=== PATIENT | male | born 1955 ===

== ENCOUNTER 2016-11-24 08:18 | Inpatient (IN) | payer MEDICAID ==
[2016-11-24 08:23] VITALS: BMI 30.4
--- NOTE | 2016-11-24 10:23 | ED PDOC ---
Lower Extremity Pain/Injury Time Seen by Provider: 11/24/16 08:35 Chief Complaint (Nursing): Lower Extremity Problem/Injury Chief Complaint (Provider): Lower Extremity Problem/Injury History Per: Patient History/Exam Limitations: no limitations Onset/Duration Of Symptoms: Days Current Symptoms Are (Timing): Still Present Severity: Moderate Additional Complaint(s): Patient is a 61 year old male who presents to ED for worsening lower back pain for several days. Patient reports that he has chronic back pain, follows with Dr. Lopez from pain managemt but notes worsening pain. Pain is now radiating into his left leg. Denies numbness, weakness or recent injury Past Medical History Reviewed: Historical Data, Nursing Documentation, Vital Signs Vital Signs: Last Vital Signs Temp 97.6 F 11/24/16 08:22 Pulse 76 11/24/16 08:22 Resp BP 129/76 11/24/16 08:22 Pulse Ox 99 11/24/16 08:22 - Medical History PMH: CAD, CHF, COPD, Diabetes, HTN Denies: HIV, Chronic Kidney Disease - Surgical History Surgical History: Coronary Stent - Family History Family History: States: Unknown Family Hx - Living Arrangements Living Arrangements: With Family - Social History Current smoker - smoking cessation education provided: Yes (5 cig a day) Alcohol: None Drugs: Denies - Home Medications Home Medications: Ambulatory Orders Medication Instructions Recorded Albuterol HFA [Ventolin HFA 90 2 puff IH Q4 PRN 05/04/14 mcg/actuation (8 g)] Fluticasone/Salmeterol 500/50 1 puff INH Q12H 05/04/14 [Advair Diskus 500/50] Ketoconazole 2% Cr [Nizoral] 1 appl TOP DAILY 05/04/14 Liraglutide [Victoza 2-Christopher] 1.8 mg SC QPM 05/04/14 Nitroglycerin [Nitroglycerin Patch] 1 patch TD DAILY 05/04/14 Prasugrel HCl [Effient] 10 mg PO DAILY 05/04/14 Carvedilol [Coreg] 12.5 mg PO Q12H 05/08/14 Diclofenac Sodium [Voltaren] 1 appl TOP BID PRN 09/17/15 Dutasteride [Avodart] 0.5 mg PO DAILY 09/17/15 Glimepiride [amaRYL] 4 mg PO DAILY 09/17/15 Nitroglycerin [Nitrostat] 0.4 mg SL Q5MIN PRN 09/17/15 Ranolazine [Ranexa] 1,000 mg PO Q12H 09/17/15 Sitagliptin Phos/Metformin HCl 1 tab PO BID 09/17/15 [Janumet 50-1,000 mg Tablet] Aspirin [Ecotrin] 81 mg PO DAILY 11/24/16 Atorvastatin [Lipitor] 40 mg PO DAILY 11/24/16 Clotrimazole/Betamethasone 1 appl TOP BID 11/24/16 [Lotrisone] Furosemide [Lasix] 10 mg PO DAILY 11/24/16 Morphine [Morphine Extended 30 mg PO Q8H 11/24/16 Release Tab] Ramipril [Altace] 5 mg PO DAILY 11/24/16 Tiotropium [Spiriva] 18 mcg IH DAILY 11/24/16 - Allergies Allergies/Adverse Reactions: Allergies Allergy/AdvReac Type Severity Reaction Status Date / Time No Known Allergies Allergy Verified 11/24/16 08:30 Review of Systems ROS Statement: Except As Marked, All Systems Reviewed And Found Negative Constitutional: Negative for: Fever Gastrointestinal: Negative for: Nausea Musculoskeletal: Positive for: Back Pain, Leg Pain Neurological: Negative for: Weakness, Numbness Physical Exam - Reviewed Nursing Documentation Reviewed: Yes Vital Signs Reviewed: Yes - Physical Exam Appears: Positive for: Non-toxic, No Acute Distress Skin: Positive for: Normal Color, Warm Eye Exam: Positive for: Normal appearance Neck: Positive for: Normal, Painless ROM, Supple Cardiovascular/Chest: Positive for: Regular Rate, Rhythm. Negative for: Murmur Respiratory: Positive for: Normal Breath Sounds. Negative for: Respiratory Distress Back: Positive for: Normal Inspection, Other (Back pain noted with movement of left leg ) Extremity: Positive for: Normal ROM Neurologic/Psych: Positive for: Alert, Oriented. Negative for: Motor/Sensory Deficits - ECG O2 Sat by Pulse Oximetry: 99 (RA) Pulse Ox Interpretation: Normal Medical Decision Making Medical Decision Making: Time: 944 Initial impression: Acute on chronic back pain Initial plan: -- Dr. Yadav paged Time: 1005 states patient will go to OR today for injection. Requesting patient be kety NPO, no blood work needed at this time. -- Morphine IV and NPO pt aware of plan Scribe Attestation: Documented by Iliana Causey acting as a scribe for Flo Christiansen MD MD Scribe Attestation: All medical record entries made by the Scribe were at my direction and personally dictated by me. I have reviewed the chart and agree that the record accurately reflects my personal performance of the history, physical exam, medical decision making, and the department course for this patient. I have also personally directed, reviewed, and agree with the discharge instructions and disposition. Disposition - Clinical Impression Clinical Impression: Acute exacerbation of chronic low back pain - Patient ED Disposition Is Patient to be Admitted: Yes - Disposition Disposition Time: 10:00 Condition: STABLE
[2016-11-24] MEDS ORDERED: Lactated Ringer's 1,000 ML IV ONE (13:27)
[2016-11-24] MEDS ORDERED: Bupivacaine HCl 0.5% PF (10 ml) Inj IJ ONE (13:39)
[2016-11-24] MEDS ORDERED: Bupivacaine HCl 0.25% PF (10 ml) Inj IJ ONE (13:40)
[2016-11-24] MEDS ORDERED: methylPREDNISolone Depo 80 mg/ml Inj IM ONE (13:40)
[2016-11-24] MEDS ORDERED: Lidocaine 1% Inj (20ml) IJ ONE (13:40)
[2016-11-24] MEDS ORDERED: Lactated Ringer's 1,000 ML IV SCH (14:09)
[2016-11-24] MEDS ORDERED: HYDROmorphone 0.5 mg/0.5 ml ISec IVP PRN (14:09)
--- NOTE | 2016-11-24 14:34 | OP ---
PROCEDURE DATE: 11/24/2016 PREOPERATIVE DIAGNOSIS: Lumbar spondylosis. POSTOPERATIVE DIAGNOSIS: Lumbar spondylosis. PROCEDURE: Left L3-4, L4-5 transforaminal epidural steroid injection and also left L3, L4, and L5 me dial branch nerve block. ANESTHESIOLOGIST: Dr. Jean Baptiste. SURGEON: Marc Yadav MD. ANESTHESIA TYPE: Monitored anesthesia care. COMPLICATIONS: None. SPECIMEN: None. PROCEDURE: After re-discussion of the procedure with the patient including its risks, benefits, alte rnatives, outcome data, possibility of no effect or increased pain, the patient consented to the proc edure. He denies any recent infections, bleeding tendencies, or being on anticoagulants. Decision w as then made to proceed to the OR. The patient was placed on the fluoroscopy table in a prone position with 2 pillows underneath his abd omen. The back was prepped and draped in a usual sterile fashion, and sterile technique was adhered to during the entire procedure. The L3 and L4 vertebral levels were first identified in the anterior -posterior view. Then angulation towards the left at approximately 15 degrees was obtained to maximi ze the visualization of the left L3 and L4 pedicles. The skin overlying the 6 o'clock position of ander th pedicles was then infiltrated with 1% lidocaine using a 25 gauge needle. Subsequently, a 22 gauge 5 inch spinal needle was then incrementally advanced under fluoroscopic guidance until tip of the ne edle lay within the intervertebral foramen. This was confirmed on the anteroposterior view and later al views. After satisfactory positioning of both needles, there were no signs of bleeding. There wa s no blood in the hub of both needles. Approximately 3 mL of 0.25% Marcaine and Depo-Medrol mixture was gradually injected into each needle. The needle was then removed. Then the medial branch nerve blocks are performed. The fluoroscopy was then returned to the oblique angle at approximately 15 deg fabio. The medial branch nerves are located at the intersection of the superior articular process and the transverse process of the L3, L4, and L5 pedicles. The skin overlying the 3 areas was then infi ltrated with 1% lidocaine using a 25 gauge needle. Subsequently, a 22 gauge 5 inch spinal needle was then incrementally advanced under fluoroscopic guidance until tip of the needle made bony contact wi th all 3 target areas. After satisfactory positioning of all 3 needles, approximately 3 mL of 0.5% M arcaine and Depo-Medrol mixture was injected. The needle was then removed, and then the patient's ba ck was cleaned and dried. Band-Aids were applied. The patient was then transferred to the recovery area in good condition without any signs of [employer] [place] or any neurological deficits. He will have a followup in office in approximately 2-4 weeks. He has been instructed to return to the [facility] tomorrow. En-Chidi Yaadv MD cc: [phone] TT: 11/24/2016 14:33:35 jn
[2016-11-24 15:19] VITALS: RESP 18
[2016-11-24 15:53] VITALS: BP 106/68; PULSE 58; TEMP 97.6; O2SAT 99
--- NOTE | 2016-11-24 16:55 | RAD ---
PROCEDURE: Intraoperative Fluoroscopy. HISTORY: PAIN MANAGEMENT FINDINGS: Fluoroscopic assistance was provided for . Approximately 73.1 seconds fluoroscopy time utilized for this procedure. Radiation dose = 28.38 mGy.
== END 2016-11-24 16:00 | disposition home or self-care (01) | DRG 243 ==
LOC: H.ER 08:18 → H.ERHOLD 10:15
PROVIDERS: ADMIT Anesthesiology; ATTEND Anesthesiology
PROC: 3E0R3CZ (ICD-10-PCS; 2016-11-24)
PROC: 3E0R33Z Introduction of Anti-inflammatory into Spinal Canal, Percutaneous Approach (ICD-10-PCS; principal; 2016-11-24 13:30)
DX: M47.816 Spondylosis without myelopathy or radiculopathy, lumbar region (principal); G89.29 Other chronic pain; I10 Essential (primary) hypertension; J44.9 Chronic obstructive pulmonary disease, unspecified; E11.9 Type 2 diabetes mellitus without complications; I25.10 Atherosclerotic heart disease of native coronary artery without angina pectoris; F17.210 Nicotine dependence, cigarettes, uncomplicated; Z95.5 Presence of coronary angioplasty implant and graft; Z79.82 Long term (current) use of aspirin

== ENCOUNTER 2018-10-24 16:00 | Emergency (ER) | payer MEDICAID ==
[2018-10-24 16:00] VITALS: BMI 30.1
[2018-10-24 16:12] VITALS: O2SAT 98
--- NOTE | 2018-10-24 16:28 | ED PDOC ---
Upper Extremity Pain/Injury Time Seen by Provider: 10/24/18 16:04 Chief Complaint (Nursing): Upper Extremity Problem/Injury Chief Complaint (Provider): Upper Extremity Problem/Injury History Per: Patient History/Exam Limitations: no limitations Onset/Duration Of Symptoms: Days Current Symptoms Are (Timing): Still Present Additional Complaint(s): 63 y/o male presents to the ED for evaluation of left shoulder pain, sudden onset two weeks ago when lifting something heavy. Patient reports of not taking any medications for pain but follows with a pain management doctor. Patient notes pain worsens when lifting the shoulder up. Otherwise, patient denies numbness, tingling, weakness, chest pain, shortness of breath, fever, chills, neck pain and elbow pain. Of note, patient reports of having seen her pain management doctor earlier today and was advised to come to the ER for further evaluation. He also reports LEFT eye redness and swelling for 2 weeks, mild dry discharge. No acuity changes or FB sensation PMD: Little Saldivar Pain Management: Dr. Jin Past Medical History Reviewed: Historical Data, Nursing Documentation, Vital Signs Vital Signs: Last Vital Signs Temp 98.3 F 10/24/18 16:04 Pulse 77 10/24/18 16:04 Resp 18 10/24/18 16:04 BP 113/64 10/24/18 16:04 Pulse Ox 98 10/24/18 16:04 - Medical History PMH: CAD, CHF, COPD, Diabetes, HTN, Hypercholesterolemia Denies: Chronic Kidney Disease - Surgical History Surgical History: Coronary Stent Other surgeries: left foot surgery for osteomyelitis - Family History Family History: States: Diabetes, Hypertension - Social History Current smoker - smoking cessation education provided: Yes - Home Medications Home Medications: Ambulatory Orders Medication Instructions Recorded Albuterol HFA [Ventolin HFA 90 2 puff IH Q4 PRN 05/04/14 mcg/actuation (8 g)] Fluticasone/Salmeterol 500/50 1 puff INH Q12H 05/04/14 [Advair Diskus 500/50] Ketoconazole 2% Cr [Nizoral] 1 appl TOP DAILY 05/04/14 Liraglutide [Victoza 2-Christopher] 1.8 mg SC QPM 05/04/14 Nitroglycerin [Nitroglycerin Patch] 1 patch TD DAILY 10/31/14 Prasugrel HCl [Effient] 10 mg PO DAILY 05/04/14 Dutasteride [Avodart] 0.5 mg PO DAILY 09/17/15 Glimepiride [amaRYL] 4 mg PO DAILY 09/17/15 Nitroglycerin [Nitrostat] 0.4 mg SL Q5MIN PRN 09/17/15 Sitagliptin Phos/Metformin HCl 1 tab PO BID 09/17/15 [Janumet 50-1,000 mg Tablet] Aspirin [Ecotrin] 81 mg PO DAILY 11/24/16 Atorvastatin [Lipitor] 40 mg PO DAILY 11/24/16 Tiotropium [Spiriva] 18 mcg IH DAILY 11/24/16 GlipiZIDE [Glipizide] 5 mg PO DAILY 12/25/16 Oxycodone HCl/Acetaminophen 1 each PO DAILY 12/25/16 [Percocet 10-325 mg Tablet] Pregabalin [Lyrica] 200 mg PO TID 12/25/16 Ranolazine [Ranexa] 1,000 mg PO DAILY 12/25/16 Polymyxin/Trimethoprim Sulfate 2 drop OS TID #10 bottle 10/24/18 [Polytrim Ophth Soln] - Allergies Allergies/Adverse Reactions: Allergies Allergy/AdvReac Type Severity Reaction Status Date / Time SHELLFISH Allergy RASH Uncoded 10/24/18 16:04 Review of Systems ROS Statement: Except As Marked, All Systems Reviewed And Found Negative (as per HPI) Constitutional: Negative for: Fever, Chills Cardiovascular: Negative for: Chest Pain Respiratory: Negative for: Shortness of Breath Musculoskeletal: Positive for: Shoulder Pain (left). Negative for: Neck Pain, Arm Pain Neurological: Negative for: Weakness, Numbness Physical Exam - Reviewed Nursing Documentation Reviewed: Yes Vital Signs Reviewed: Yes - Physical Exam Appears: Positive for: In Acute Distress (mild painful distress) Head Exam: Positive for: ATRAUMATIC, NORMOCEPHALIC Skin: Positive for: Warm, Dry Eye Exam: Positive for: EOMI, PERRL, Other (LEFT eyelids with erythema mild edema and dry scaliness) Cardiovascular/Chest: Positive for: Regular Rate, Rhythm. Negative for: Murmur Respiratory: Positive for: Normal Breath Sounds. Negative for: Respiratory Distress Pulses-Radial (L): 2+ Pulses-Radial (R): 2+ Extremity: Positive for: Capillary Refill (< 2 seconds), Other (No edema. No deltoid anesthesia, 5/5 strength in thumb opposition and finger abduction. Light touch intact in all nerve distribution of the hand. 5/5 strength of flexion and extension at the elbow. 4+/5 strength in shoulder abduction). Negative for: Normal ROM (Passive ROM limited abduction secondary to pain. Shoulder rotation is painless), Deformity, Swelling Lymphatic: Negative for: Adenopathy Neurological/Psych: Positive for: Awake, Alert. Negative for: Motor/Sensory Deficits - ECG ECG: Positive for: Interpreted By Me, Viewed By Me ECG Rhythm: Positive for: Sinus Rhythm Interpretation Of Abn EKG: bifascicular block. EKG similar to previous EKG back in November 2014. Rate: 76 O2 Sat by Pulse Oximetry: 98 (RA) Pulse Ox Interpretation: Normal Medical Decision Making Medical Decision Making: Time: 1618 Impression: Shoulder pain Differentials include but not limited to rotator cuff injury, fracture and arthritis Plan: -- EKG -- Anesthesiology Consult -- Call Anesthesia Consult PRN -- Shoulder Left XR Accession No. : [id number] Patient Name / ID : QUITA SAMANO / [id number] Exam Date : 10/24/2018 16:08:54 ( Approved ) Study Comment : Sex / Age : M / 63Y Creator : jovan combs Dictator : Farrukh Sommers MD Runner Worker : Die Designer Apprentice : Farrukh Sommers MD Approver2 : Report Date : 10/24/2018 16:27:08 My Comment : Date of service: 10/24/2018 PROCEDURE: Radiographs of the Left Shoulder HISTORY: severe pain COMPARISON: 07/02/2010. Left shoulder radiographs. TECHNIQUE: 3 views obtained. FINDINGS: BONES: No visible fracture, subluxation or dislocation. Subcentimeter bone island medial aspect left humeral head. JOINTS: Stable degenerative changes glenohumeral joint and acromioclavicular joint. SOFT TISSUES: Normal. OTHER FINDINGS: None. IMPRESSION: No acute findings related to/ accounting for the clinical presentation. No significant interval change compared to the prior examination(s). Stable degenerative changes. Dr Yadav evaluated pt in ER and performed joint injection for pain relief. Scribe Attestation: Documented by Lia Estrada, acting as a scribe Evangelina Cruz MD. Provider Scribe Attestation: All medical record entries made by the Scribe were at my direction and personally dictated by me. I have reviewed the chart and agree that the record accurately reflects my personal performance of the history, physical exam, medical decision making, and the department course for this patient. I have also personally directed, reviewed, and agree with the discharge instructions and disposition. Disposition - Clinical Impression Clinical Impression: Degenerative joint disease, shoulder, left, Blepharitis of eyelid of left eye - Disposition Referrals: Kyle Yadav-Chidi Banda MD [Staff Provider] - Little Saldivar MD [Family Provider] - Jass Fajardo MD [Staff Provider] - Disposition: Routine/Home Disposition Time: 17:27 Condition: STABLE Additional Instructions: FOLLOWUP WITH DR YADAV FOR FURTHER PAIN MANAGEMENT. FOLLOWUP WITH DR SALDIVAR OR OPHTHOMALOGY IN A WEEK FOR FURTHER EVALUATION OF THE EYE. Prescriptions: Polymyxin/Trimethoprim Sulfate [Polytrim Ophth Soln] 2 drop OS TID #10 bottle Instructions: Blepharitis, Osteoarthritis (DC)
[2018-10-24 16:32] VITALS: PULSE 76
--- NOTE | 2018-10-24 16:49 | RAD ---
Date of service: 10/24/2018 PROCEDURE: Radiographs of the Left Shoulder HISTORY: severe pain COMPARISON: 07/02/2010. Left shoulder radiographs. TECHNIQUE: 3 views obtained. FINDINGS: BONES: No visible fracture, subluxation or dislocation. Subcentimeter bone island medial aspect left humeral head. JOINTS: Stable degenerative changes glenohumeral joint and acromioclavicular joint. SOFT TISSUES: Normal. OTHER FINDINGS: None. IMPRESSION: No acute findings related to/ accounting for the clinical presentation. No significant interval change compared to the prior examination(s). Stable degenerative changes.
[2018-10-24] MEDS ORDERED: methylPREDNISolone Depo 80 mg/ml Inj ONE (16:57)
[2018-10-24] MEDS ORDERED: Bupivacaine HCl 0.5% PF (10 ml) Inj ONE (16:58)
--- NOTE | 2018-10-24 17:26 | CP.PCM.CON ---
History of Present Illness - History of Present Illness History of Present Illness: Patient was seen at the outpatient pain clinic and referred to ER for intractable pain in the left shoulder. 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 He had lifted something heavy one month ago and injured his left shoulder. Pain has been severe and constant since, to the point he's not able to raise his arm and attend to his ADL's. Given the circumstances, injection was offered to him in the ER, which he agreed to after the risks of bleeding, hematoma, due to his being on Effient, were explained to him. Decision was then made to proceed. Consent was signed and placed in the chart. The shoulder was then cleansed with EtOH and sterile technique was used during the entire procedure. The shoulder joint was accessed both posteriorly and anteriorly. A 25G, 1.5-inch needle was first placed in the subacromial space, after negative aspiration, 5mL of a .5% Bupivacaine and Depo-Medrol mixture was injected. Another 25G, 1.5-inch needle was then placed in between humeral head and coracoid process, after negative aspiration, another 5mL of .5% Bupivacaine and Depo-Medrol mixture was injected. Patient tolerated procedure well. There were no signs of intra-vascular access during the entire procedure. Past Patient History - Infectious Disease Hx of Infectious Diseases: None - Past Medical History & Family History Past Medical History?: Yes - Past Social History Smoking Status: Light Smoker < 10 Cigarettes Daily - CARDIAC Hx Congestive Heart Failure: Yes Hx Hypercholesterolemia: Yes Hx Hypertension: Yes - PULMONARY Hx Chronic Obstructive Pulmonary Disease (COPD): Yes - NEUROLOGICAL Hx Neurological Disorder: No - HEENT Hx HEENT Problems: No Other/Comment: Ear pain, unspecified - RENAL Hx Chronic Kidney Disease: No - ENDOCRINE/METABOLIC Hx Endocrine Disorders: Yes Hx Diabetes Mellitus Type 2: Yes - INTEGUMENTARY Hx Dermatological Problems: No - MUSCULOSKELETAL/RHEUMATOLOGICAL Hx Musculoskeletal Disorders: Yes Hx Falls: No Hx Osteomyelitis: Yes - GASTROINTESTINAL Hx Gastrointestinal Disorders: No - GENITOURINARY/GYNECOLOGICAL Hx Genitourinary Disorders: No - PSYCHIATRIC Hx Psychophysiologic Disorder: No Hx Substance Use: No - SURGICAL HISTORY Hx Coronary Stent: Yes - ANESTHESIA Hx Anesthesia: Yes Hx Anesthesia Reactions: No Hx Malignant Hyperthermia: No Meds Allergies/Adverse Reactions: Allergies Allergy/AdvReac Type Severity Reaction Status Date / Time SHELLFISH Allergy RASH Uncoded 10/24/18 16:04 Physical Exam - Extremities Exam Extremities exam: Positive for: tenderness Additional comments: TTP over left shoulder diffusely. Limited ROM, positive impingement signs. Results - Vital Signs Recent Vital Signs: Last Vital Signs Temp 98.3 F 10/24/18 16:04 Pulse 76 10/24/18 16:34 Resp 18 10/24/18 16:04 BP 113/64 10/24/18 16:04 Pulse Ox 98 10/24/18 16:34 Assessment & Plan (1) Shoulder pain Assessment and Plan: 63 yo man w/ complicated medical history has left shoulder impingemnt. He elected to have left shoulder injection due to intractable pain. - see note for left shoulder injection - patient instructed to monitor blood sugar, bleeding at home - patient instructed to retrieve PET scan report - patient to f/u at outpatient pain clinic Status: Acute
[2018-10-24 17:40] VITALS: BP 114/77; RESP 16; TEMP 98.8
--- NOTE | 2018-10-25 10:09 | CARD ---
APPROVED REPORT Date of service: 10/24/2018 EKG Measurement Heart [id number] <Conclusion> Normal sinus rhythm Right bundle branch block Left anterior fascicular block Bifascicular block Abnormal ECG
== END 2018-10-24 17:35 | disposition home or self-care (01) ==
LOC: H.ER 16:00
DX: M19.012 Primary osteoarthritis, left shoulder (principal); H01.006 Unspecified blepharitis left eye, unspecified eyelid; F17.210 Nicotine dependence, cigarettes, uncomplicated; E11.9 Type 2 diabetes mellitus without complications; I11.0 Hypertensive heart disease with heart failure; J44.9 Chronic obstructive pulmonary disease, unspecified; Z79.84 Long term (current) use of oral hypoglycemic drugs; Z95.5 Presence of coronary angioplasty implant and graft; Z79.82 Long term (current) use of aspirin
CPT/HCPCS: 73030; 93005; 99283; J1040